=== PATIENT | male | born 1990 | race Caucasian/White ===

== ENCOUNTER 2022-11-09 11:57 | Emergency (ER) | payer BC ==
--- OUTSIDE RECORDS SUMMARY | 2022-11-09 12:00 | XMS REPORT | Continuity of Care Document ---
:1990 Author Organization [facility] t Address [address] [facility] [address] [place] [address] Care Team Providers Name Role Phone Pcp, Patient Does Not Have A Primary Care Physician [id number] Eugenie Moody Attending Clinician Lab, Ang - Db Attending Clinician Unavailable EUGENIE HALL Attending Clinician Unavailable Pob, Adc Lab Main Attending Clinician Unavailable Doctor Unassigned, [place] Attending Clinician Unavailable MARY HAMILTON Attending Clinician Unavailable CARLOZ LANDA Attending Clinician Unavailable Payers Payer Name Policy Type Policy Number Effective Date Expiration Date S ource Problems Condition Condition Condition Status Onset Resolution Last Treating Co mments Source Name Details Category Date Date Treatment Clinician Date Hyperinsul Hyperinsul Disease Active U nivers inemia inemia 8-05 ity of 00:00: [place] 00 [facility] Branch Elevated Elevated Disease Active Unive rs ALT ALT 8-05 ity [place] measure[place] Other Other Disease Active Univers epilepsy epilepsy 8-03 ity of without without 00:00: [place] status status 00 Medical epilepticu epilepticu Br anch s, not s, not intractabl intractabl e e Obesity Obesity Disease Active Univers (BMI (BMI 8-03 ity of 30-39.9) 30-39.9) 00:00: [place] 00 Medical Branch Allergies, Adverse Reactions, Alerts Allergy Allergy Status Severity Reaction(s) Onset Inactive Treating Comm ents Source Name Type Date Date Clinician Erythrom Propensi Active Unknown - Uni vers ycin ty to See comments 8-03 ity of (Bulk) adverse 00:00: [place] reaction 00 Medical s Branch ERYTHROM DRUG Active Unknown-Cmnt Un harry YCIN 8-03 ity of (BULK) 00:00: [place] 00 Medical Branch Social History Social Habit Start Date Stop Date Quantity Comments Source History of Chews Tobacco University of tobacco use [facility] Exposure to 2022-05-11 2022-05-[address] [facility] SARS-CoV-2 00:00:00 07:16:00 [facility] (event) Branch Alcohol intake 2022-05-21 2022-05-21 Current drinker Unive rsity of 00:00:00 00:00:00 of alcohol [facility] (finding) [place] Tobacco use and 2021-11-27 2021-11-27 User of smokeless Un iversity of exposure 00:00:00 00:00:00 tobacco [facility] Sex Ass[birth year] At [birth year] Universit y of 00:00:00 00:00:00 [facility] Smoking Status Start Date Stop Date Source Never smoked tobacco [facility] Medications Ordered Filled Start Stop Current Ordering Indication Dosage Frequency Signature Comments Components Source Medication Medication Date Date Medication? Clinician (SIG) Name Name topiramate Yes [id number] 200mg Take 1 Univers 200 mg 3-30 tablet by ity of tablet 00:00: mouth in [place] 00 the Medical morning. Branch TOPIRAMATE 2022-0 Yes [id number] 100mg TAKE 1 Univers 100 mg 3-30 TABLET BY ity of tablet 00:00: MOUTH IN [place] THE Medical MORNING Branch topiramate 2022-0 Yes [id number] 200mg Take 1 Univers 200 mg 3-30 tablet by ity of tablet 00:00: mouth in [place] the Medical morning. Branch TOPIRAMATE 2022-0 Yes [id number] 100mg TAKE 1 Univers 100 mg 3-30 TABLET BY ity of tablet 00:00: MOUTH IN [place] THE Medical MORNING Branch topiramate 2022-0 Yes [id number] 200mg Take 1 Univers (TOPAMAX) 1-25 tablet by ity o f 200 mg 00:00: mouth in [place] tablet 00 the Medical morning. Branch Follow-up for refills and fasting labs. topiramate 2022-0 Yes [id number] 100mg Take 1 Univers 100 mg 1-25 tablet by ity of tablet 00:00: mouth in [place] 00 the Medical morning. Branch topiramate 2023-0 Yes [id number] 200mg Take 1 Univers (TOPAMAX) 1-25 tablet by ity o f 200 mg 00:00: mouth in [place] tablet 00 the Medical morning. Branch Follow-up for refills and fasting labs. topiramate 2023-0 Yes [id number] 100mg Take 1 Univers 100 mg 1-25 tablet by ity of tablet 00:00: mouth in [place] 00 the Medical morning. Branch topiramate 2023-0 Yes [id number] 200mg Take 1 Univers (TOPAMAX) 1-25 tablet by ity o f 200 mg 00:00: mouth in [place] tablet 00 the Medical morning. Branch Follow-up for refills and fasting labs. topiramate 2023-0 Yes [id number] 100mg Take 1 Univers 100 mg 1-25 tablet by ity of tablet 00:00: mouth in [place] 00 the Medical morning. Branch topiramate 2023-0 Yes [id number] 200mg Take 1 Univers (TOPAMAX) 1-25 tablet by ity o f 200 mg 00:00: mouth in [place] tablet 00 the Medical morning. Branch Follow-up for refills and fasting labs. topiramate 2023-0 Yes [id number] 100mg Take 1 Univers 100 mg 1-25 tablet by ity of tablet 00:00: mouth in [place] 00 the Medical morning. Branch topiramate 2023-0 2023- No [id number] 200mg Take 1 Univers (TOPAMAX) 1-25 03-30 tablet by ity of 200 mg 00:00: 00:00 mouth in [place] tablet 00 :00 the Medical morning. Branch Follow-up for refills and fasting labs. topiramate 2023-0 2023- No [id number] 100mg Take 1 Univers 100 mg 1-25 03-30 tablet by ity of tablet 00:00: 00:00 mouth in [place] 00 :00 the Medical morning. Branch topiramate 2023-0 Yes [id number] 200mg Take 1 Univers (TOPAMAX) 1-22 tablet by ity o f 200 mg 00:00: mouth in [place] tablet 00 the Medical morning. Branch Follow-up for refills and fasting labs. topiramate 2023-0 Yes [id number] 100mg Take 1 Univers 100 mg 1-22 tablet by ity of tablet 00:00: mouth in [place] 00 the Medical morning. [place] topiramate 2022-0 3- No [id number] 200mg Take 1 Univers (TOPAMAX) 05-1825 tablet by ity of 200 mg 00:00: 00:00 mouth in [place] tablet 00 :00 the Medical morning. Branch Follow-up for refills and fasting labs. topiramate 2022-0 3- No [id number] 100mg Take 1 Univers 100 mg 05-18 tablet by ity of tablet 00:00: 00:00 mouth in [place] 00 :00 the Medical morning. [place] topiramate 2022-0 3- No [id number] 200mg Take 1 Univers (TOPAMAX) 05-18 tablet by ity of 200 mg 00:00: 00:00 mouth in [place] tablet 00 :00 the Medical morning. Branch Follow-up for refills and fasting labs. topiramate 2022-0 3- No [id number] 100mg Take 1 Univers 100 mg 05-18 tablet by ity of tablet 00:00: 00:00 mouth in [place] 00 :00 the Medical morning. [place] topiramate 2021-0 2021- No 200mg Take 200 U nivers (TOPAMAX) 8-05 08-05 mg by ity of 200 mg 15:24: 00:00 mouth. [place] tablet 55 :00 Medical Branch topiramate 2021-0 Yes [id number] 200mg Take 1 Univers (TOPAMAX) 8-05 tablet by ity o f 200 mg 00:00: mouth in [place] tablet 00 the Medical morning. [place] topiramate 2-0 Yes [id number] 100mg Take 1 Univers 100 mg 8-05 tablet by ity of tablet 00:00: mouth in [place] 00 the Medical morning. [place] topiramate 2-0 Yes [id number] 200mg Take 1 Univers (TOPAMAX) 8-05 tablet by ity o f 200 mg 00:00: mouth in [place] tablet 00 the Medical morning. [place] topiramate 2-0 Yes [id number] 100mg Take 1 Univers 100 mg 8-05 tablet by ity of tablet 00:00: mouth in [place] 00 the Medical morning. [place] topiramate 2-0 3- No [id number] 200mg Take 1 Univers (TOPAMAX) 8-05 -13 tablet by ity of 200 mg 00:00: 00:00 mouth in [place] tablet 00 :00 the Medical morning. Branch topiramate 2021-0 2023- No [id number] 100mg Take 1 Univers 100 mg 11-29 tablet by ity of tablet 00:00: 00:00 mouth in [place] 00 :00 the Medical morning. [place] topiramate 2021-0 Yes 200mg Take 200 Un harry (TOPAMAX) 8-03 mg by ity of 200 mg 09:51: mouth. [place] tablet 50 [facility] topiramate 2021-0 Yes 200mg Take 200 Un harry (TOPAMAX) 8-03 mg by ity of 200 mg 09:51: mouth. [place] tablet 50 [facility] topiramate 2021-0 Yes 200mg Take 200 Un harry (TOPAMAX) 8-03 mg by ity of 200 mg 09:51: mouth. [place] tablet 50 [facility] topiramate 2020-0 Yes 100mg Take 100 Un harry 100 mg 9-25 mg by ity of tablet 00:00: mouth in [place] 00 the Medical morning. Branch topiramate 2020-0 Yes 100mg Take 100 Un harry 100 mg 9-25 mg by ity of tablet 00:00: mouth in [place] 00 the Medical morning. Branch topiramate 2020-0 Yes 100mg Take 100 Un harry 100 mg 9-25 mg by ity of tablet 00:00: mouth in [place] 00 the Medical morning. Branch topiramate 2021-0 2022- No 100mg Take 100 U nivers 100 mg 9-25 08-05 mg by ity of tablet 00:00: 00:00 mouth in [place] 00 :00 the Medical morning. Branch Immunizations Ordered Filled Immunization Date Status Comments [facility] e Immunization Name Name TD 2015-11-26 Completed University of 00:00:00 [facility] TDAP 2015-11-26 Completed University of 00:00:00 [facility] TDAP 2015-11-26 Completed University of 00:00:00 [facility] TDAP 2015-11-26 Completed University of 00:00:00 [facility] TDAP 2015-11-26 Completed University 00:00:00 [facility] TDAP 2015-11-26 Completed University 00:00:00 [facility] TDAP 2015-11-26 Completed University of 00:00:00 [place] [facility] TDAP 2015-11-26 Completed University of 00:00:00 [place] [facility] TDAP 2015-11-26 Completed University of 00:00:00 [place] [facility] TDAP 2015-11-26 Completed University of 00:00:00 [place] [facility] TDAP 2015-11-26 Completed University of 00:00:00 [place] [facility] TDAP 2015-11-26 Completed University of 00:00:00 [facility] Vital Signs Vital Name Observation Time Observation Value Comments Source BMI 2022-05-21 13:45:00 42.10 kg/m2 Universi ty of [place] [facility] [place] Oxygen saturation in 2022-05-21 13:45:00 98 /min University of Arterial blood by eV[employer] Pulse oximetry Branch Systolic blood 2022-05-21 13:45:00 129 mm[Hg] Univer sity of pressure [place] [facility] [place] Diastolic blood 2022-05-21 13:45:00 83 mm[Hg] Unive rsity of pressure [facility] Heart rate 2022-05-21 13:45:00 63 /min Universi ty of [place] [facility] Body temperature 2022-05-21 13:45:00 37.17 Madelyn Univ ersity of [place] [facility] Body height 2022-05-21 13:45:00 195.6 cm Universi ty of [place] [facility] Body weight 2022-05-21 13:45:00 161.027 kg Universi ty of [place] [facility] Systolic blood 2021-11-27 14:44:00 133 mm[Hg] Univer sity of pressure [place] [facility] Diastolic blood 2021-11-27 14:44:00 77 mm[Hg] Unive rsity of pressure [place] [facility] Heart rate 2021-11-27 14:44:00 80 /min Universi ty of [place] [facility] Body height 2021-11-27 14:44:00 195.6 cm Universi ty of [place] [facility] Body weight 2021-11-27 14:44:00 151.048 kg Universi ty of [place] [facility] BMI 2021-11-27 14:44:00 39.49 kg/m2 Universi ty of [place] [facility] Oxygen saturation in 2021-11-27 14:44:00 98 /min University of Arterial blood by eVenues Pulse oximetry Branch Procedures This patient has no known procedures. Encounters Start End Encounter Admission Attending Care Care Encounter Source Date/Time Date/Time Type Type Clinicians Facility Department ID 2022-07-25 2022-07-25 [facility] [id number] Univers 00:00:00 00:00:00 Eugenie A HEALTH [id number] i ty of [place] 4.2.7.2.686 Luis F as SUKH?BLEA [id number] [address] OFFICE [facility] 2022-07-19 2022-07-19 [facility] [id number] Univers 00:00:00 00:00:00 Eugenie A HEALTH [id number] i ty of [place] 4.2.7.2.686 Luis F as SUKH?BLEA [id number] [address] OFFICE [facility] 2022-05-22 2022-05-22 [facility] [id number] Univers 00:00:00 00:00:00 Eugenie A HEALTH [id number] i ty of [place] [id number] Luis F as SUKH?BLEA [id number] [facility] 044 [facility] 2022-05-21 2022-05-21 Healthcare Corporate Account Director Lab, Ang [facility] [id number] Univers 08:15:00 08:27:48 Visit Eugenie Hall Pedro HEALTH [id number] ity of [place] [id number] Luis F as SUKH?BLEA [phone] [facility] OFFICE [facility] 2022-05-21 2022-05-21 Office [facility] [id number] Univers 07:30:00 08:10:47 Visit Eugenie Vasquez HEALTH [id number] i ty of [place] [id number] Luis F as SUKH?BLEA [id number] [address] OFFICE [facility] 2022-05-21 2022-05-21 [facility] [id number] Univers 07:30:00 08:10:47 EUGENIE marina [facility] 2022-05-09 2022-05-09 Refill [facility] [id number] Univers 00:00:00 00:00:00 Eugenie A HEALTH [id number] i ty of [place] [id number] Luis F as SUKH?BLEA [id number] [facility] 044 [facility] OFFICE [facility] 2021-12-03 2021-12-03 Telephone [facility] [id number] Univers 00:00:00 00:00:00 Eugenie A HEALTH [id number] i ty of [place] [id number] Luis F as SUKH?BLEA [id number] [facility] 044 [facility] OFFICE [facility] 2021-11-29 2021-11-29 [facility]phone [facility] [id number] Univers 00:00:00 00:00:00 Eugenie A HEALTH 350.1.13.10 i ty of [place] [id number] Luis F as SUKH?BLEA [id number] [facility] 044 [facility] 2021-11-27 2021-11-27 Healthcare Corporate Account Director Shanna, Adc Lab Main [facility] 1.2.8 [id number] Univers 11:30:00 11:45:00 Visit Eugenie Hall Pedro [place] [id number] ity of [place] 4.2.7.2.686 [place] PROF[place] [id number] [facility] 353 [facility] 2021-11-27 2021-11-27 Outpatient [facility] [id number] Univers 10:00:00 11:44:32 EUGENIE marina [facility] 2021-11-27 2021-11-27 Office [facility] [id number] Univers 10:00:00 10:30:00 Visit Eugenie Vasquez HEALTH 350.1.13.10 i ty of [place] [id number] Luis F as SUKH?BLEA [id number] [place] roberto PUGA [address] [place] [address] MEDICAL OFFICE BUILDING 2021-11-27 2021-11-27 Outpatient Roddy HALL [facility] [id number] [facility] 10:00:00 10:00:00 EUGENIE marina [facility] 2021-11-27 2021-11-27 Orders Doctor VERITO [id number] Univers 00:00:00 00:00:00 Only Unassigned, [place] 350.1.13.10 ity [place] [facility] [id number] Luis F as [id number] [address] 2021-11-21 2021-11-21 Outpatient SAMIA HAMILTON [id number] Samia 11:30:00 11:30:00 MARY johnston 2021-11-20 2021-11-20 Outpatient SAMIA LANDA [id number] Samia 16:00:00 16:00:00 CARLOZ johnston Results This patient has no known results.
[2022-11-09] MEDS ORDERED: KETOROLAC 30 MG/ML INJ ONE (12:52)
[2022-11-09] MEDS ORDERED: HYDROCODONE/APAP 10/325 TAB ONE (12:52)
--- NOTE | 2022-11-09 13:14 | ER ---
Nurse's Notes [facility] Name: Pipe Paz Age: 32 yrs Sex: Male : 1990 Arrival Date: 11/09/2022 Time: 11:57 Bed 19 Private MD: Diagnosis: Pain in left shoulder;Sprain of unspecified parts of unspecified shoulder girdle, initial encounter Presentation: 11/09 12:17 Chief complaint: Patient states: Was playing [employer] ball yesterday and heard a "pop" vg1 while throwing the ball, c/o Left shoulder pain. Coronavirus screen: Vaccine status: Patient reports being unvaccinated. Ebola Screen: Patient negative for fever greater than or equal to 101.5 degrees Fahrenheit, and additional compatible Ebola Virus Disease symptoms Patient denies exposure to infectious person. Patient denies travel to an Ebola-affected area in the 21 days before illness onset. Initial Sepsis Screen: Does the patient meet any 2 criteria? No. Patient's initial sepsis screen is negative. Does the patient have a suspected source of infection? No. Patient's initial sepsis screen is negative. Risk Assessment: Do you want to hurt yourself or someone else? Patient reports no desire to harm self or others. Onset of symptoms was November 08, 2022. 12:17 Method Of Arrival: Ambulatory vg1 12:17 Acuity: ELIAS 4 vg1 Triage Assessment: 12:18 General: Appears in no apparent distress. uncomfortable, Behavior is calm, cooperative. vg1 Pain: Complains of pain in Left Shoulder Pain currently is 5 out of 10 on a pain scale. Pain began 1 day ago. Musculoskeletal: Circulation, motion, and sensation intact. Range of motion: limited in left shoulder. Historical: - Allergies: 12:18 Erythromycin; vg1 - Home Meds: 12:18 Topamax Oral [Active]; vg1 - PMHx: 12:18 Epilepsy; vg1 - PSHx: 12:18 None; vg1 - Immunization history:: Client reports having NOT received the Covid vaccine. - Social history:: Smoking status: Patient reports use of chewing tobacco. - Family history:: not pertinent. Screenin:20 [facility] ED Fall Risk Assessment (Adult) History of falling in the last 3 months, vg1 including since admission No falls in past 3 months (0 pts). Abuse screen: Denies threats or abuse. Denies injuries from another. Nutritional screening: No deficits noted. Tuberculosis screening: No symptoms or risk factors identified. Assessment: 12:20 Reassessment: SEE TRIAGE. vg1 13:29 Reassessment: Patient appears in no apparent distress at this time. Patient and/or vg1 family updated on plan of care and expected duration. Pain level reassessed. Patient is alert, oriented x 3, equal unlabored respirations, skin warm/dry/pink. Pain has decreased to 3/10. Vital Signs: 12:17 BP 125 / 76; Pulse 78; Resp 14; Temp 97.7(O); Pulse Ox 98% on R/A; Weight 157.4 kg; vg1 Height 6 ft. 5 in. ; Pain 5/10; 13:29 BP 129 / 80; Pulse 70; Resp 14; Pulse Ox 99% on R/A; vg1 12:17 Body Mass Index 41.15 (157.40 kg, 195.58 cm) vg1 12:17 Pain Scale: Adult vg1 ED Course: 11:59 Patient arrived in ED. am2 12:06 Pipe Cedillo MD is Attending Physician. milan 12:07 Solange Caceres RN is Primary Nurse. vg1 12:18 Triage completed. vg1 12:18 Arm band placed on. vg1 12:20 Patient has correct armband on for positive identification. Bed in low position. Call vg1 light in reach. Side rails up X 1. Adult w/ patient. 12:20 No provider procedures requiring assistance completed. vg1 12:24 Sling applied to left arm. mm9 12:49 Shoulder Left (2 View) XRAY In Process Unspecified. EDMS 13:14 Omid Julian MD is Referral Physician. milan 13:29 Patient did not have IV access during this emergency room visit. vg1 Administered Medications: 12:46 Drug: Sheridan PO 10 mg-325 mg 1 tabs Route: PO; vg1 13:28 Follow up: Response: No adverse reaction; Marked relief of symptoms vg1 12:49 Drug: Ketorolac IM 60 mg {Note: 30 mg Right deltoid 30 mg Left deltoid.} Route: IM; vg1 Site: left deltoid; 13:28 Follow up: Response: No adverse reaction; Marked relief of symptoms vg1 Medication: 12:20 VIS not applicable for this client. vg1 Outcome: 13:14 Discharge ordered by . milan 13:29 Discharged to home ambulatory, with family. vg1 13:29 Condition: good 13:29 Discharge instructions given to patient, family, Instructed on discharge instructions, follow up and referral plans. medication usage, Demonstrated understanding of instructions, follow-up care, medications, Prescriptions given X 3. 13:30 Patient left the ED. vg1 Signatures: Dispatcher [employer] EDPipe Fairbanks MD MD cha Moreno, Amanda am2 Garcia, Victoria, RN RN juan [email or web address] Margo Hernandez mm9
--- NOTE | 2022-11-09 13:14 | EDPHYS ---
Physician Documentation [facility] Name: Pipe Paz Age: 32 yrs Sex: Male : 1990 Arrival Date: 11/09/2022 Time: 11:57 Bed 19 Private MD: ED Physician Pipe Cedillo HPI: 11/09 12:24 This 32 yrs old Male presents to ER via Ambulatory with complaints of milan Shoulder Injury. 12:24 The patient or guardian complains of decreased range of motion, pain, that is acute. milan left shoulder. Context: The problem was sustained at a sports field or court. Onset: The symptoms/episode began/occurred yesterday. Modifying factors: the symptoms are alleviated by remaining still, shoulder immobilizer, sling, The symptoms are aggravated by lifting weight, movement, rotation of arm. Associated signs and symptoms: The patient has no apparent associated signs or symptoms. Severity of symptoms: At their worst the symptoms were moderate, in the emergency department the symptoms are unchanged. Treatment prior to arrival includes: no previous treatment. The patient has not experienced similar symptoms in the past. Historical: - Allergies: 12:18 Erythromycin; vg1 - Home Meds: 12:18 Topamax Oral [Active]; vg1 - PMHx: 12:18 Epilepsy; vg1 - PSHx: 12:18 None; vg1 - Immunization history:: Client reports having NOT received the Covid vaccine. - Social history:: Smoking status: Patient reports use of chewing tobacco. - Family history:: not pertinent. ROS: 12:24 Constitutional: Negative for fever, chills, and weight loss, Eyes: Negative for injury, milan pain, redness, and discharge, ENT: Negative for injury, pain, and discharge, Neck: Negative for injury, pain, and swelling, Cardiovascular: Negative for chest pain, palpitations, and edema, Respiratory: Negative for shortness of breath, cough, wheezing, and pleuritic chest pain, Abdomen/GI: Negative for abdominal pain, nausea, vomiting, diarrhea, and constipation, Back: Negative for injury and pain, : Negative for injury, bleeding, discharge, and swelling, Skin: Negative for injury, rash, and discoloration, Neuro: Negative for headache, weakness, numbness, tingling, and seizure, Psych: Negative for depression, anxiety, suicide ideation, homicidal ideation, and hallucinations, Allergy/Immunology: Negative for hives, rash, and allergies, Endocrine: Negative for neck swelling, polydipsia, polyuria, polyphagia, and marked weight changes, Hematologic/Lymphatic: Negative for swollen nodes, abnormal bleeding, and unusual bruising. 12:24 MS/extremity: Positive for decreased range of motion, pain, tenderness, of the anterior aspect of left shoulder and posterior aspect of left shoulder. Exam: 12:24 Constitutional: This is a well developed, well nourished patient who is awake, alert, milan and in no acute distress. Head/Face: Normocephalic, atraumatic. Eyes: Pupils equal round and reactive to light, extra-ocular motions intact. Lids and lashes normal. Conjunctiva and sclera are non-icteric and not injected. Cornea within normal limits. Periorbital areas with no swelling, redness, or edema. ENT: Nares patent. No nasal discharge, no septal abnormalities noted. Tympanic membranes are normal and external auditory canals are clear. Oropharynx with no redness, swelling, or masses, exudates, or evidence of obstruction, uvula midline. Mucous membranes moist. Neck: Trachea midline, no thyromegaly or masses palpated, and no cervical lymphadenopathy. Supple, full range of motion without nuchal rigidity, or vertebral point tenderness. No Meningismus. Chest/axilla: Normal chest wall appearance and motion. Nontender with no deformity. No lesions are appreciated. Cardiovascular: Regular rate and rhythm with a normal S1 and S2. No gallops, murmurs, or rubs. Normal PMI, no JVD. No pulse deficits. Respiratory: Lungs have equal breath sounds bilaterally, clear to auscultation and percussion. No rales, rhonchi or wheezes noted. No increased work of breathing, no retractions or nasal flaring. Abdomen/GI: Soft, non-tender, with normal bowel sounds. No distension or tympany. No guarding or rebound. No evidence of tenderness throughout. Back: No spinal tenderness. No costovertebral tenderness. Full range of motion. Male : Normal genitalia with no discharge or lesions. Skin: Warm, dry with normal turgor. Normal color with no rashes, no lesions, and no evidence of cellulitis. Neuro: Awake and alert, GCS 15, oriented to person, place, time, and situation. Cranial nerves II-XII grossly intact. Motor strength 5/5 in all extremities. Sensory grossly intact. Cerebellar exam normal. Normal gait. Psych: Awake, alert, with orientation to person, place and time. Behavior, mood, and affect are within normal limits. 12:24 Musculoskeletal/extremity: Extremities: grossly normal except: noted in the anterior aspect of left shoulder and left shoulder: decreased ROM, pain, ROM: limited active range of motion due to pain, limited passive range of motion due to pain, in the anterior aspect of left shoulder and posterior aspect of left shoulder, Circulation is intact in all extremities. Sensation intact. Compartment Syndrome exam of affected extremity: is normal. DVT Exam: No signs of deep vein thrombosis. no swelling, negative Homans' sign noted on exam, no appreciated bluish discoloration, no erythema, no increased warmth, pain, tenderness. Vital Signs: 12:17 BP 125 / 76; Pulse 78; Resp 14; Temp 97.7(O); Pulse Ox 98% on R/A; Weight 157.4 kg; vg1 Height 6 ft. 5 in. ; Pain 5/10; 13:29 BP 129 / 80; Pulse 70; Resp 14; Pulse Ox 99% on R/A; vg1 12:17 Body Mass Index 41.15 (157.40 kg, 195.58 cm) vg1 12:17 Pain Scale: Adult vg1 MDM: 12:06 Patient medically screened. [facility] 12:26 Data reviewed: vital signs, nurses notes, radiologic studies, plain films. [facility] Consideration of Admission/Observation Escalation of care including admission/observation considered. I considered the following discharge prescriptions or medication management in the emergency department Medications were administered in the Emergency Department. See MAR. Independent interpretation of the following test(s) in the Emergency Department X-Ray: My interpretation is x ray left shoulder. Test considered but Not performed: Labs: no labs. Historians other than the Patient: Spouse/Significant Other: informed. Care significantly affected by the following chronic conditions: epilepsy. Counseling: I had a detailed discussion with the patient and/or guardian regarding: the historical points, exam findings, and any diagnostic results supporting the discharge/admit diagnosis, radiology results, the need for outpatient follow up, for definitive care, a orthopedic surgeon. 11/09 12:15 Order name: Shoulder Left (2 View) XRAY [facility] 11/09 12:15 Order name: Sling; Complete Time: 12:24 [facility] 11/09 12:15 Order name: Ice pack; Complete Time: 12:23 [facility] Administered Medications: 12:46 Drug: Bridger PO 10 mg-325 mg 1 tabs Route: PO; vg1 13:28 Follow up: Response: No adverse reaction; Marked relief of symptoms vg1 12:49 Drug: Ketorolac IM 60 mg {Note: 30 mg Right deltoid 30 mg Left deltoid.} Route: IM; vg1 Site: left deltoid; 13:28 Follow up: Response: No adverse reaction; Marked relief of symptoms vg1 Disposition Summary: 11/09/22 13:14 Discharge Ordered Location: Home [facility] Problem: new [facility] Symptoms: are unchanged milan Condition: Stable milan Diagnosis - Pain in left shoulder milan - Sprain of unspecified parts of unspecified shoulder girdle, initial encounter milan Followup: milan - With: Private Physician - When: 2 - 3 days - Reason: Recheck today's complaints, Continuance of care, Re-evaluation by your physician Followup: milan - With: - When: 2 - 3 days - Reason: Recheck today's complaints, Re-evaluation by your physician Discharge Instructions: - Discharge Summary Sheet milan - Joint Pain milan - Musculoskeletal Pain milan - Shoulder Pain milan - How to Use Cold Therapy, [id number] milan - Shoulder Pain, [id number] milan - Shoulder Sprain milan - Joint Pain, [id number] [facility] Forms: - Medication Reconciliation Form [facility] - Thank You Letter [facility] - Antibiotic Education milan - Prescription Opioid Use [facility] - Patient Portal Instructions [facility] Prescriptions: - acetaminophen-codeine 300-30 mg Oral tablet - take 2 tablet by ORAL route every 6 hours; 20 tablet; Refills: 0, Product [facility] Selection Permitted - Diclofenac Sodium 75 mg Oral tablet,delayed release (DR/EC) - take 1 tablet by ORAL route 2 times per day; 20 tablet; Refills: 0, Product [facility] Selection Permitted - Medrol (Krishna) 4 mg Oral Tablets, Dose Pack - take 1 tablet by ORAL route as directed - follow package instructions; 1 milan packet; Refills: 0, Product Selection Permitted Signatures: Dispatcher [employer] Pipe Blanca MD MD cha Garcia, Victoria, RN RN vg1
--- NOTE | 2022-11-09 13:17 | RAD REPORT ---
EXAM DESCRIPTION: RAD - Shoulder Left 2 View - 11/09/2022 12:47 pm CLINICAL HISTORY: PAIN COMPARISON: No comparisons TECHNIQUE: Internal and external rotation views of the left shoulder were obtained. FINDINGS: There is no fracture or dislocation. AC joint is normal in appearance. No acute or suspici ous findings. IMPRESSION: Negative two-view left shoulder examination.
[2022-11-09 13:39] VITALS: TEMP 97.7
[2022-11-09 13:41] VITALS: BP 129/80; O2SAT 99
== END 2022-11-09 13:30 | disposition home or self-care (01) ==
LOC: ER 11:57
DX: S43.82XA Sprain of other specified parts of left shoulder girdle, initial encounter (principal); F17.220 Nicotine dependence, chewing tobacco, uncomplicated; Z88.3 Allergy status to other anti-infective agents
CPT/HCPCS: 96372; 99284

== ENCOUNTER 2023-12-04 01:21 | Emergency (ER) | payer BC ==
--- OUTSIDE RECORDS SUMMARY | 2023-12-04 01:24 | XMS REPORT | Continuity of Care Document ---
Author Name Unknown Address [address] [place] [address] [facility] thconnect Address [address] [place] [address] Care Team Providers Care Scratch Brusher Name Role Phone Pcp, Patient Does Not Have A Primary Care Physic rosalva DANY PARR Attending Clinician UnavailDANY De Los Santos Attending Clinician UnavailDany De Los Santos MD Attending Clinician [phone] CECE IQBAL Attending Clinician Unavailable Cece Noel Attending Clinician [phone] Unknown, Attending Attending Clinician Unavailab Hina De La Vega Attending Clinician [phone] HINA SINGH Attending Clinician Unavailable Eugenie Moody Attending Clinician [phone] Joellen Vargas PTA Attending Clinician Unavail able JOSIE GORMAN Attending Clinician Unavailable Josie Gorman PA-C Attending Clinician [phone] Gabrielle Moyer PT Attending Clinician Unavailable Eleno Vargas PTA Attending Clinician Unavaila Flor Machuca PT Attending Clinician Un available Doctor Unassigned, [place] Attending Clinician U SEAN Sood Attending Clinician Unavailable SEAN SIERRA Attending Clinician Unavailable Lab, Ang - Db Attending Clinician Unavailable EUGENIE SEE Attending Clinician Unavailable Pob, Ad[facility] Lab Main Attending Clinician UnavailMARY Rivas Attending Clinician Unavailab CARLOZ Montero Attending Clinician Unava ilable Payers Payer Name Policy Type Policy Number Effective Date Expirati on Date Source Problems Condition Name Condition Details Condition Category Status Onset Date Resolution Date Last Treatment Date Treating Clinician Comments Source Hyperinsul inemia Hyperinsul inemia Disease Active 11-29 00:00: 00 [facility] Elevated ALT measuremen t Elevated ALT measuremen t Disease Active 11-29 00:00: 00 [facility] Other epilepsy without status epilepticu s, not intractabl e Other epilepsy without status epilepticu s, not intractabl e Disease Active 11-27 00:00: 00 [facility] Obesity (BMI 30-39.9) Obesity (BMI 30-39.9) Disease Active 11-27 00:00: 00 [facility] Other epilepsy without status epilepticu s, not intractabl e Other epilepsy without status epilepticu s, not intractabl e Disease Active 11-27 00:00: 00 [facility] Allergies, Adverse Reactions, Alerts Allergy Name Allergy Type Status Severity Reaction(s) Onset Date Inactive Date Treating Clinician Comments Source Erythrom ycin (Bulk) Propensi ty to adverse reaction s Active Unknown - See comments 11-27 00:00: 00 [facility] ERYTHROM YCIN (BULK) DRUG Active Unknown-Cmnt 11-27 00:00: 00 [facility] Social History Social Habit Start Date Stop Date Quantity Comments Source Gender identity [facility] History of tobacco use Chews Tobacco [facility] Alcohol intake 2023-07-02 00:00:00 2023-07-02 00:00:00 Current drinker of alcohol (finding) [facility] History of Social function 2022-11-10 00:00:00 2022-11-10 00:00:00 [facility] Exposure to SARS-CoV-2 (event) 2022-05-11 00:00:00 2022-05-21 07:16:00 Not sure [facility] Tobacco use and exposure 2021-11-27 00:00:2021-11-27 00:00:00 User of smokeless tobacco [facility] Sex Assigned At 1990 00:00:00 1990 00:00:00 [facility] Smoking Status Start Date Stop Date Source Never smoked tobacco [facility] Medications Ordered Medication Name Filled Medication Name Start Date Stop Date Current Medication? Ordering Clinician Indication Dosage Frequency Signature (SIG) Comments Components Source diclofenac 75 mg EC tablet 07-01 00:00: 00 Yes [id number] 75mg Take 1 tablet by mouth in the morning and 1 tablet in the evening. Take with meals. [facility] codeine-gua ifenesin 10-100 mg/5 mL oral solution 2022-04 00:00: 00 02-02 04:59 :00 No 10mL Take 10 mL by mouth every 6 (six) hours as needed for Cough for up to 5 days. Indication s: cough [facility] predniSONE 20 mg tablet 2022-04 00:00: 00 02-02 04:59 :00 No [id number] 40mg Take 2 tablets by mouth in the morning for [address] [facility] TOPIRAMATE 200 mg tablet 01-22 00:00: 00 Yes [id number] 200mg TAKE 1 TABLET BY MOUTH IN THE MORNING [facility] TOPIRAMATE 100 mg tablet 01-22 00:00: 00 Yes [id number] 100mg TAKE 1 TABLET BY MOUTH IN THE MORNING [facility] dexamethaso ne sod phos PF injection 10 mg 01-15 15:45: 00 01-15 14:51 :38 [id number] [facility] dexamethaso ne (DECADRON) injection 10 mg 01-15 15:45: 00 01-15 15:01 :[id number] [facility] albuterol 2.5 mg /3 mL (0.083 %) nebulizer solution 01-15 00:00: 00 Yes [id number] 2.5mg Inhale 3 mL every 4 (four) hours as needed for Wheezing or Shortness of Breath. [facility] cetirizine 10 mg tablet 01-15 00:00: 00 Yes [id number] 10mg Take 1 tablet by mouth in the morning. [facility] Guaifenesin 1,200 mg tablet 01-15 00:00: 00 Yes [id number] 1200mg Take 1 tablet by mouth in the morning and 1 tablet in the evening. [facility] methylPREDN ISolone 4 mg tablets 01-15 00:00: 00 Yes [id number] Take by mouth SEE-INSTRU CTIONS. follow package directions [facility] albuterol 90 mcg/actuati on inhaler 01-15 00:00: 00 Yes [id number] 2{puff} Inhale 2 Puffs every 6 (six) hours as needed for Wheezing or Shortness of Breath. [facility] topiramate 200 mg tablet 07-24 00:00: 00 01-22 00:00 :00 No [id number] 200mg Take 1 tablet by mouth in the morning. [facility] TOPIRAMATE 100 mg tablet 330 00:00: 00 01-22 00:00 :00 No [id number] 100mg TAKE 1 TABLET BY MOUTH IN THE MORNING [facility] topiramate (TOPAMAX) 200 mg tablet 1- 00:00: 00 07-24 00:00 :00 No [id number] 200mg Take 1 tablet by mouth in the morning. Follow-up for refills and fasting labs. [facility] topiramate 100 mg tablet 0 1-25 00:00: 00 07-24 00:00 :00 No [id number] 100mg Take 1 tablet by mouth in the morning. [facility] topiramate (TOPAMAX) 200 mg tablet 1-22 00:00: 00 05-21 00:00 :00 No [id number] 200mg Take 1 tablet by mouth in the morning. Follow-up for refills and fasting labs. [facility] topiramate 100 mg tablet 2022- 1-22 00:00: 00 05-21 00:00 :00 No [id number] 100mg Take 1 tablet by mouth in the morning. [facility] topiramate (TOPAMAX) 200 mg tablet 8-05 15:24: 55 11-29 00:00 :00 No 200mg Take [address] [facility] topiramate (TOPAMAX) 200 mg tablet 11-29 00:00: 00 05-09 00:00 :00 No [id number] 200mg Take 1 tablet by mouth in the morning. [facility] topiramate 100 mg tablet 8 00:00: 00 05-09 00:00 :00 No [id number] 100mg Take 1 tablet by mouth in the morning. [facility] topiramate (TOPAMAX) 200 mg tablet 11-27 09:51: 50 Yes 200mg Take [address] [facility] topiramate 100 mg tablet 01-19 00:00: 00 11-29 00:00 :00 No 100mg Take 100 mg by mouth in the morning. [facility] Immunizations Ordered Immunization Name Filled Immunization Name Date Status Comments Source TD 2015-11-26 00:00:00 Completed [facility] TDAP 2015-11-26 00:00:00 Completed [facility] TDAP 2015-11-26 00:00:00 Completed [facility] TDAP 2015-11-26 00:00:00 Completed [facility] TDAP 2015-11-26 00:00:00 Completed [facility] TDAP 2015-11-26 00:00:00 Completed [facility] TDAP 2015-11-26 00:00:00 Completed [facility] TDAP 2015-11-26 00:00:00 Completed [facility] TDAP 2015-11-26 00:00:00 Completed [facility] TDAP 2015-11-26 00:00:00 Completed [facility] TDAP 2015-11-26 00:00:00 Completed [facility] TDAP 2015-11-26 00:00:00 Completed [facility] TDAP 2015-11-26 00:00:00 Completed [facility] TDAP 2015-11-26 00:00:00 Completed [facility] TDAP 2015-11-26 00:00:00 Completed [facility] TDAP 2015-11-26 00:00:00 Completed [facility] TDAP 2015-11-26 00:00:00 Completed [facility] TDAP 2015-11-26 00:00:00 Completed [facility] TDAP 2015-11-26 00:00:00 Completed [facility] TDAP 2015-11-26 00:00:00 Completed [facility] TDAP 2015-11-26 00:00:00 Completed [facility] TDAP 2015-11-26 00:00:00 Completed [facility] TDAP 2015-11-26 00:00:00 Completed [facility] TDAP 2015-11-26 00:00:00 Completed [facility] TDAP 2015-11-26 00:00:00 Completed [facility] TDAP 2015-11-26 00:00:00 Completed [facility] TDAP 2015-11-26 00:00:00 Completed [facility] TDAP 2015-11-26 00:00:00 Completed [facility] TDAP 2015-11-26 00:00:00 Completed [facility] TDAP 2015-11-26 00:00:00 Completed [facility] TDAP 2015-11-26 00:00:00 Completed [facility] TDAP 2015-11-26 00:00:00 Completed [facility] TDAP 2015-11-26 00:00:00 Completed [facility] TDAP 2015-11-26 00:00:00 Completed [facility] TDAP 2015-11-26 00:00:00 Completed [facility] TDAP 2015-11-26 00:00:00 Completed [facility] TDAP 2015-11-26 00:00:00 Completed [facility] TDAP 2015-11-26 00:00:00 Completed [facility] TDAP 2015-11-26 00:00:00 Completed [facility] TDAP 2015-11-26 00:00:00 Completed [facility] TDAP 2015-11-26 00:00:00 Completed [facility] TDAP 2015-11-26 00:00:00 Completed [facility] TDAP 2015-11-26 00:00:00 Completed [facility] TDAP Unknown Completed [facility] TDAP Unknown Completed [facility] TDAP Unknown Completed [facility] TDAP Unknown Completed [facility] TDAP Unknown Completed [facility] TDAP Unknown Completed [facility] TDAP Unknown Completed [facility] TDAP Unknown Completed [facility] TDAP Unknown Completed [facility] TDAP Unknown Completed [facility] TDAP Unknown Completed [facility] TDAP Unknown Completed [facility] TDAP Unknown Completed [facility] TDAP Unknown Completed [facility] TDAP Unknown Completed [facility] TDAP Unknown Completed [facility] TDAP Unknown Completed [facility] Vital Signs Vital Name Observation Time Observation Value Comments S ource Systolic blood pressure 2023-07-02 16:22:00 120 mm[Hg] [facility] Diastolic blood pressure 2023-07-02 16:22:00 75 mm[Hg] [facility] Heart rate 2023-07-02 16:22:00 76 /min [facility] Respiratory rate 2023-07-02 16:22:00 20 /min [facility] Body height 2023-07-02 16:22:00 195.6 cm [facility] Body weight 2023-07-02 16:22:00 155.13 kg [facility] BMI 2023-07-02 16:22:00 40.56 kg/m2 [facility] Oxygen saturation in Arterial blood by Pulse oximetry 2023-07-02 16:22:00 99 /min [facility] Systolic blood pressure 2023-01-27 17:13:00 127 mm[Hg] [facility] Diastolic blood pressure 2023-01-27 17:13:00 81 mm[Hg] [facility] Heart rate 2023-01-27 17:13:00 82 /min [facility] Body temperature 2023-01-27 17:13:00 36.72 [facility] Respiratory rate 2023-01-27 17:13:00 20 /min [facility] Body height 2023-01-27 17:13:00 195.6 cm [facility] Body weight 2023-01-27 17:13:00 161.481 kg [facility] BMI 2023-01-27 17:13:00 42.22 kg/m2 [facility] Oxygen saturation in Arterial blood by Pulse oximetry 2023-01-27 17:13:00 97 /min [facility] Systolic blood pressure 2023-01-26 20:48:00 138 mm[Hg] [facility] Diastolic blood pressure 2023-01-26 20:48:00 85 mm[Hg] [facility] Heart rate 2023-01-26 20:48:00 94 /min [facility] Body height 2023-01-26 20:48:00 195.6 cm [facility] Body weight 2023-01-26 20:48:00 163.975 kg [facility] BMI 2023-01-26 20:48:00 42.87 kg/m2 [facility] Oxygen saturation in Arterial blood by Pulse oximetry 2023-01-26 20:48:00 97 /min [facility] Systolic blood pressure 2023-01-15 14:42:00 137 mm[Hg] [facility] Diastolic blood pressure 2023-01-15 14:42:00 89 mm[Hg] [facility] Heart rate 2023-01-15 14:42:00 99 /min [facility] Body temperature 2023-01-15 14:42:00 36.83 [facility] Respiratory rate 2023-01-15 14:42:00 18 /min [facility] Body weight 2023-01-15 14:42:00 161.481 kg [facility] BMI 2023-01-15 14:42:00 42.22 kg/m2 [facility] Oxygen saturation in Arterial blood by Pulse oximetry 2023-01-15 14:42:00 96 /min [facility] Body weight 2022-12-25 14:44:00 160.12 kg [facility] BMI 2022-12-25 14:44:00 41.86 kg/m2 [facility] Systolic blood pressure 2022-11-24 19:22:00 131 mm[Hg] [facility] Diastolic blood pressure 2022-11-24 19:22:00 88 mm[Hg] [facility] Heart rate 2022-11-24 19:16:00 78 /min [facility] Body height 2022-11-24 19:16:00 195.6 cm [facility] Body weight 2022-11-24 19:16:00 160.392 kg [facility] BMI 2022-11-24 19:16:00 41.93 kg/m2 [facility] Body height 2022-11-12 18:56:00 195.6 cm [facility] Body weight 2022-11-12 18:56:00 159.349 kg [facility] BMI 2022-11-12 18:56:00 41.66 kg/m2 [facility] Systolic blood pressure 2022-11-10 18:03:00 130 mm[Hg] [facility] Diastolic blood pressure 2022-11-10 18:03:00 81 mm[Hg] [facility] Heart rate 2022-11-10 17:57:00 80 /min [facility] Body height 2022-11-10 17:57:00 195.6 cm [facility] Body weight 2022-11-10 17:57:00 156.219 kg [facility] BMI 2022-11-10 17:57:00 40.84 kg/m2 [facility] Oxygen saturation in Arterial blood by Pulse oximetry 2022-11-10 17:57:00 96 /min [facility] Systolic blood pressure 2022-05-21 13:45:00 129 mm[Hg] [facility] Diastolic blood pressure 2022-05-21 13:45:00 83 mm[Hg] [facility] Heart rate 2022-05-21 13:45:00 63 /min [facility] Body temperature 2022-05-21 13:45:00 37.17 [facility] Body height 2022-05-21 13:45:00 195.6 cm [facility] Body weight 2022-05-21 13:45:00 161.027 kg [facility] BMI 2022-05-21 13:45:00 42.10 kg/m2 [facility] Oxygen saturation in Arterial blood by Pulse oximetry 2022-05-21 13:45:00 98 /min [facility] Systolic blood pressure 2021-11-27 14:44:00 133 mm[Hg] [facility] Diastolic blood pressure 2021-11-27 14:44:00 77 mm[Hg] [facility] Heart rate 2021-11-27 14:44:00 80 /min [facility] Body height 2021-11-27 14:44:00 195.6 cm [facility] Body weight 2021-11-27 14:44:00 151.048 kg [facility] BMI 2021-11-27 14:44:00 39.49 kg/m2 [facility] Oxygen saturation in Arterial blood by Pulse oximetry 2021-11-27 14:44:00 98 /min [facility] Procedures Procedure Date / Time Performed Performing Clinician Source XR CHEST 2 VW 2023-01-27 18:00:05 Cece Iqbal [facility] EXTERNAL PROVIDER RECORDS 2022-12-02 05:01:00 Doctor Unassigned, [place] AUTHORIZATION FOR RELEASE OF PHI 2022-11-27 05:01:00 Doctor Unassigned, [place] EXTERNAL PROVIDER RECORDS 2022-11-24 05:01:00 Doctor Unassigned, [place] REFERRAL- REQUEST/RESPONSE 2022-11-12 05:01:00 Doctor Unassigned, [place] Encounters Start Date/Time End Date/Time Encounter Type Admission Type Attending [facility] Care Facility Care Department Encounter ID Source 2023-07-02 10:45:00 2023-07-02 10:45:00 Office Visit ParrDany [facility] 1.2.840.114 350.1.13.10 4.2.7.2.[id number] [facility] 2023-07-02 10:45:00 2023-07-02 10:43:58 Outpatient R DANY PARR CRAIG [facility] [id number] [facility] 2023-01-27 12:24:29 2023-01-27 23:59:00 Outpatient R IQBALSURYA CONTIVANDANA [facility] [id number] [facility] 2023-01-27 12:24:29 2023-01-27 23:59:00 Hospital Encounter uSrya Iqbaljordanwendi [facility] 1.2.840.114 350.1.13.10 4.2.7.2.[id number] [facility] 2023-01-27 12:00:00 2023-01-27 12:30:17 Urgent Care Surya Iqbaljordanwendi Unknown, Attending [facility] 1.2.840.114 350.1.13.10 4.2.7.2.[id number] [facility] 2023-01-26 15:45:00 2023-01-26 16:00:00 Office Visit Hina Singh [facility] 1.2.840.114 350.1.13.10 4.2.7.2.[id number] [facility] 2023-01-26 15:45:00 2023-01-26 15:45:00 Outpatient R HINA SINGH [facility] [id number] [facility] 2023-01-26 00:00:00 2023-01-26 00:00:00 Letter (Out) [facility] 1.2.840.114 350.1.13.10 4.2.7.2.[id number] [facility] 2023-01-26 00:00:00 2023-01-26 00:00:00 Letter (Out) [facility] 1.2.840.114 350.1.13.10 4.2.7.2.[id number] [facility] 2023-01-26 00:00:00 2023-01-26 00:00:00 Letter (Out) Hina Snigh [facility] 1.2.840.114 350.1.13.10 4.2.7.2.[id number] [facility] 2023-01-26 00:00:00 2023-01-26 00:00:00 Letter (Out) [facility] 1.2.840.114 350.1.13.10 4.2.7.2.[id number] [facility] 2023-01-23 09:30:00 2023-01-23 09:30:00 Outpatient R [facility] [id number] [facility] 2023-01-17 00:00:00 2023-01-17 00:00:00 Refill Eugenie See [facility] 1.2.840.114 350.1.13.10 4.2.7.2.[id number] [facility] 2023-01-16 16:00:00 2023-01-16 16:45:00 Ancillary Visit Joellen Vargas Dany Villafana [facility] 1.840.114 350.1.13.10 4.2.7.2.[id number] [facility] 2023-01-16 16:00:00 2023-01-16 16:00:00 Outpatient R DANY PARR CRAIG [facility] [id number] [facility] 2023-01-15 09:40:00 2023-01-15 10:01:48 Outpatient R JOSIE GORMAN [facility] [id number] [facility] 2023-01-15 09:40:00 2023-01-15 10:01:48 Urgent Care Josie Gorman Unknown, Attending [facility] 1.840.114 350.1.13.10 4.2.7.2.[id number] [facility] 2023-01-15 00:00:00 2023-01-15 00:00:00 [facility] 1.84.114 350.1.13.10 4.2.7.2.[id number] [facility] 2023-01-15 00:00:00 2023-01-15 00:00:00 [facility] 1.840.114 350.1.13.10 4.2.7.2.[id number] [facility] 2023-01-09 11:00:00 2023-01-09 11:51:15 Ancillary Visit Gabrielle Vuong Craig L [facility] 1.840.114 350.1.13.10 4.2.7.2.[id number] [facility] 2023-01-07 11:00:00 2023-01-07 13:08:45 Ancillary Visit Gabrielle Vuong Craig L [facility] 1.2.840.114 350.1.13.10 4.2.7.2.[id number] [facility] 2023-01-02 11:00:00 2023-01-02 11:45:00 Ancillary Visit Sam JoellenDany Cowan [facility] 1.2.840.114 350.1.13.10 4.2.7.2.[id number] [facility] 2022-12-31 10:15:00 2022-12-31 11:00:00 Ancillary Visit Eleno Vargas Craig L [facility] 1.2.840.114 350.1.13.10 4.2.7.2.[id number] [facility] 2022-12-26 00:00:00 2022-12-26 00:00:00 Telephone Hina Singh [facility] 1.2.840.114 350.1.13.10 4.2.7.2.[id number] [facility] 2022-12-25 10:00:00 2022-12-25 10:15:00 Office Visit Hina Singh Craig [facility] 1.2.840.114 350.1.13.10 4.2.7.2.[id number] [facility] 2022-12-25 10:00:00 2022-12-25 10:00:00 Outpatient R DANY PARR [facility] [id number] [facility] 2022-12-24 09:30:00 2022-12-24 10:15:00 Ancillary Visit Eleno Vargas Craig [facility] 1.2840.114 350.1.13.10 4.2.7.2.[id number] [facility] 2022-12-24 00:00:00 2022-12-24 00:00:00 Telephone Dany Parr [facility] 1.84.114 350.1.13.10 4.2.7.2.[id number] [facility] 2022-12-22 09:30:00 2022-12-22 10:15:00 [facility] 1.84.114 350.1.13.10 4.2.7.2.[id number] [facility] 2022-12-15 09:30:00 2022-12-15 10:13:56 Outpatient R DANY PARR DANY [facility] [id number] [facility] 2022-12-15 09:30:00 2022-12-15 10:13:56 Ancillary [facility] 1.2840.114 350.1.13.10 4.2.7.2.686 [id number] [facility] 2022-12-02 00:00:00 2022-12-02 00:00:00 Orders Only Doctor Unassigned, [place] [facility] 1.284.114 350.1.13.10 4.2.7.2.[id number] [facility] 2022-12-01 00:00:00 2022-12-01 00:00:00 Telephone Dany Parr [facility] 1.20.114 350.1.13.10 4.2.7.2.[id number] [facility] 2022-11-27 00:00:00 2022-11-27 00:00:00 Orders Only Doctor Unassigned, [place] [facility] 1.2840.114 350.1.13.10 4.2.7.2.[id number] [facility] 2022-11-24 14:45:00 2022-11-24 14:57:15 Outpatient R DANY PARR [facility] [id number] [facility] 2022-11-24 14:45:00 2022-11-24 14:57:15 Office Visit Dany Parr [facility] 1.0.114 350.1.13.10 4.2.7.2.[id number] [facility] 2022-11-24 00:00:00 2022-11-24 00:00:00 Orders Only Doctor Unassigned, [place] [facility] 1.20.114 350.1.13.10 4.2.7.2.[id number] [facility] 2022-11-24 00:00:00 2022-11-24 00:00:00 Telephone Dany Parr [facility] 1..114 350.1.13.10 4.2.7.2.[id number] [facility] 2022-11-20 00:00:00 2022-11-20 00:00:00 Telephone [facility] 1.2.114 350.1.13.10 4.2.7.2.[id number] [facility] 2022-11-20 00:00:00 2022-11-20 00:00:00 [facility]phone [facility] 1.2.840.114 350.1.13.10 4.2.7.2.[id number] [facility] 2022-11-20 00:00:00 2022-11-20 00:00:00 Patient Secure Msg Doctor Unassigned, [place] [facility] 1.2.840.114 350.1.13.10 4.2.7.2.[id number] [facility] 2022-11-19 00:00:00 2022-11-19 00:00:00 Telephone [facility] Par[facility] 1.2840.114 350.1.13.10 4.2.7.2.[id number] [facility] 2022-11-13 00:00:00 2022-11-13 00:00:00 Telephone [facility]any Parr [facility] 1.2.840.114 350.1.13.10 4.2.7.2.[id number] [facility] 2022-11-12 14:45:00 2022-11-12 14:45:00 Office Visit [facility] Par[facility] 1.2840.114 350.1.13.10 4.2.7.2.[id number] [facility] 2022-11-12 14:45:00 2022-11-12 14:18:52 Outpatient R DANY PARR [facility] [id number] [facility] 2022-11-12 00:00:00 2022-11-12 00:00:00 Orders Only Doctor Unassigned, [place] [facility] 1.2.840.114 350.1.13.10 4.2.7.2.[id number] [facility] 2022-11-10 13:00:00 2022-11-10 13:37:39 Outpatient R SEAN SIERRA [facility] [id number] [facility] 2022-11-10 13:00:00 2022-11-10 13:37:39 Office Visit Tonia [facility] SU[facility] 1.2.840.114 350.1.13.10 4.2.7.2.[id number] [facility] 2022-11-10 00:00:00 2022-11-10 00:00:00 Letter (Out) [facility] 1.2.840.114 350.1.13.10 4.2.7.2.[id number] [facility] 2022-07-25 00:00:00 2022-07-25 00:00:00 Refill Mayi, Eugenie A [facility] 1.2.840.114 350.1.13.10 4.2.7.2.[id number] [facility] 2022-07-19 00:00:00 2022-07-19 00:00:00 Refill Mayi, Eugenie A [facility] 1.2.840.114 350.1.13.10 4.2.7.2.[id number] [facility] 2022-05-22 00:00:00 2022-05-22 00:00:00 Refill Mayi, Eugenie A [facility] 1.2840.114 350.1.13.10 4.2.7.2.[id number] [facility] 2022-05-21 08:15:00 2022-05-21 08:27:48 Top Screw Visit Lab, Ang - Db Eugenie See [facility] 1.2840.114 350.1.13.10 4.2.7.2.[id number] [facility] 2022-05-21 07:30:00 2022-05-21 08:10:47 Outpatient R MAYIVAISHALI VANESSALIE [facility] [id number] [facility] 2022-05-21 07:30:00 2022-05-21 08:10:47 Office Visit uEgenie See [facility] 1.2840.114 350.1.13.10 4.2.7.2.[id number] [facility] 2022-05-09 00:00:00 2022-05-09 00:00:00 Refill Eugenie See [facility] 1.2840.114 350.1.13.10 4.2.7.2.[id number] [facility] 2021-12-03 00:00:00 2021-12-03 00:00:00 Telephone Eugenie See [facility] 1.2840.114 350.1.13.10 4.2.7.2.[id number] [facility] 2021-11-29 00:00:00 2021-11-29 00:00:00 Telephone Eugenie See [facility] 1.2.840.114 350.1.13.10 4.2.7.2.[id number] [facility] 2021-11-27 11:30:00 2021-11-27 11:45:00 Top Screw Visit Pob, Adc Lab Main Eugenie See [facility] 1..840.114 350.1.13.10 4.2.7.2.[id number] [facility] 2021-11-27 10:00:00 2021-11-27 11:44:32 Outpatient R EUGENIE SEE [facility] [id number] [facility] 2021-11-27 10:00:00 2021-11-27 10:30:00 Office Visit Eugenie See [facility] 1.2.840.114 350.1.13.10 4.2.7.2.[id number] [facility] 2021-11-27 10:00:00 2021-11-27 10:00:00 Outpatient R EUGENIE SEE [facility] [id number] [facility] 2021-11-27 00:00:00 2021-11-27 00:00:00 Orders Only Doctor Unassigned, [place] [facility] 1..840.114 350.1.13.10 4.2.7.2.[id number] [facility] 2021-11-21 11:30:00 2021-11-21 11:30:00 Outpatient MARY HAMILTON [id number] Samia Liang 2021-11-20 16:00:00 2021-11-20 16:00:00 Outpatient CARLOZ LANDA [id number] Samia Liang Notes Date/Time Note Provider Source 2022-12-29 10:38:09 Formatting of this n ote might be different from the original. Flor from PT faxed noted 12/26/22 Linda Oleary MA 12/29/2022 10:38 AM Linda Oleary MA [facility] 2022-12-26 15:37:26 Formatting of this n ote might be different from the original. Pt following up on request. Shweta Candelaria [facility] 2022-12-26 08:38:46 Formatting of this n ote might be different from the original. Pt called wanting to verify if we received medical record request from [employer]. He states that it was faxed over on 12/22. If not received he is asking for clinic to get in touch with them. Please advise. 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 Patient is needing an extension on FMLA, pt dropped off paperwork & placed in provider basket. Pt has appt tomorrow with Niranjan to fill out paperwork. If paperwork can be filled out and faxed back without an appt, pt is greatly appreciated. Linda Morris [facility] 2022-12-12 15:47:55 Formatting of this n ote might be different from the original. Informed patient the forms are ready to be picked up and I'll fax it over to [employer] for him as well. Didi Sánchez MA 12/12/2022 3:48 PM Didi Sánchez [facility] 2022-12-01 11:11:46 Formatting of this n ote might be different from the original. Pt came into clinic to drop off forms to be signed for short term disability and for leave of absents for work. Cortney Janes Nava [facility] 2022-11-25 08:22:00 Formatting of this n ote might be different from the original. PT referral updated Linda Oleary MA 11/25/2022 8:22 AM T [facility] 2022-11-24 16:52:12 Formatting of this n ote might be different from the original. Report is done schedule a follow-up appointment NAME: Hattie Paz EXAM DATE: 18-Nov-2022 1:45 PM : 1990 PHYSICIAN: Dany Parr MD EXAM: OPEN MRI SHOULDER W/O LEFT ACC#: [id number] SEX/AGE: M/32 OPEN MRI SHOULDER W/O LEFT page 1 of 2 Exam: MRI of the left shoulder without contrast Clinical information: Left shoulder pain for one week Technique: Multiplanar, multisequence imaging of the left shoulder was performed without contrast. Findings: There is a type I acromion in normal position. The acromioclavicular joint shows mild joint space narrowing, fibrous capsular overgrowth and osteophyte formation. There is no bone marrow edema surrounding the acromioclavicular joint. There is a small amount of fluid in the subacromial/subdeltoid bursa and a small shoulder joint effusion. There is a 2.3 cm length fluid-filled partial thickness tear along the articular surface of the distal supraspinatus tendon estimated at 25% in thickness. The infraspinatus, teres and subscapularis tendons are intact with no partial or full thickness tears. The rotator cuff muscles are normal in caliber with no atrophy, fatty infiltration or intramuscular edema. The biceps tendon is located in the bicipital groove without subluxation. The biceps labral complex is intact. The superior, anterior and posterior labrum demonstrate normal morphology with normal signal intensity. No labral tears are visualized. The superior, middle and inferior glenohumeral ligaments are intact. The glenohumeral joint is well maintained. There are no suprascapular or spinoglenoid notch cysts. Impression: 1. A 2.3 cm length fluid-filled partial thickness tear along the articular surface of the distal supraspinatus tendon estimated at 25% in thickness. NAME: Hattie Paz EXAM DATE: 18-Nov-2022 1:45 PM : 1990 PHYSICIAN: Dany Parr MD EXAM: OPEN MRI SHOULDER W/O LEFT ACC#: [id number] SEX/AGE: M/32 OPEN MRI SHOULDER W/O LEFT page 2 of 2 2. A small amount of fluid in the subacromial/subdeltoid bursa. 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 Pt called and states that for the referral it was supposed to be his left arm, and not right. Please advise. Shweta Candelaria [facility] 2022-11-20 10:58:35 Formatting of this n ote might be different from the original. Sent message via [employer] informing him to call and schedule an appt for Thursday since provider is booked up until then. Didi Sánchez MA 11/20/2022 10:59 AM [facility] 2022-11-20 10:47:09 Formatting of this n ote might be different from the original. Pt calling to say he only has a cd but know repots to bring to his next appt. They next fiordaliza is 12/11 and pt said he cant wait that long. He would like to be put in for today or tomorrow. Can some reach ou to pt to see what can be done Rubi Waldron [facility] 2022-11-20 10:30:09 Formatting of this n ote might be different from the original. Called patient but no answer so LVMTCB to schedule an appointment to discuss his MRI results and bring in his report and CD.Didi Sánchez MA 11/20/2022 10:30 AM [facility] 2022-11-20 09:52:44 Formatting of this n ote might be different from the original. Pt calling wanting to go over MRI results, also says work is calling him so he says this is urgent so he know is he can return to full duty or with restrictions Mary Mondragon [facility] 2022-11-19 13:17:34 Formatting of this n ote might be different from the original. Pt called and is wanting to verify if we received MRI from [facility]. Pt states that he had the MRI around 2 PM yesterday. Please give pt a call with an update on status. Call back number: [phone] Pt is also requesting Tylenol 3 with codeine. He states that he Ibuprofen isn't working, and he was prescribed Tylenol 3 before and it had helped ease the pain. Shweta Candelaria [facility] 2022-11-13 11:49:43 Formatting of this n ote might be different from the original. MRI as ordered at [facility] once auth is obtained pt will be contacted to schedule Linda Oleary MA 11/13/2022 11:50 AM Linda Oleary MA [facility] 2022-11-13 08:34:31 Formatting of this n ote might be different from the original. Patient is calling in requesting order for MRI per patient he discussed at yesterday's OV. Loki Caceres [facility]
[2023-12-04] MEDS ORDERED: DIPHENHYDRAMINE 50 MG/ML VIAL ONE (02:04)
[2023-12-04] MEDS ORDERED: KETOROLAC 30 MG/ML INJ ONE (02:04)
[2023-12-04] MEDS ORDERED: NA CHLORIDE 0.9% 1,000 ML ONE (02:05)
--- NOTE | 2023-12-04 02:35 | EDPHYS ---
Physician Documentation [facility] Name: Pipe Paz Age: 33 yrs Sex: Male : 1990 Arrival Date: 12/04/2023 Time: 01:21 Bed 20 Private MD: ED Physician Dharmesh Tabares HPI: 12/03 01:55 This 33 yrs old Male presents to ER via Ambulatory with complaints of Arm ec2 Injury, Numbness Of Arm. 01:55 Patient with history of rotator cuff injury in her left upper extremity, complaining of ec2 shoulder pain as well as head pain, neck pain going into the trapezius. No falls injuries or trauma.. Historical: - Allergies: 01:53 Erythromycin; cp4 - Home Meds: 01:53 Topamax Oral [Active]; cp4 - PMHx: 01:53 epilepsy; cp4 - Immunization history:: Adult Immunizations up to date. - Infectious Disease History:: Denies. - Social history:: Smoking status: Patient denies any tobacco usage or history of. ROS: 01:55 Constitutional: as per hpi ec2 Exam: 01:55 Constitutional: GEN: NAD Head: atraumatic Eyes: EOMI Ears: External ears are ec2 normal. CV: regular rate LUNGS: no respiratory distress ABD: non-distended SKIN: no evidence of rashes MSK: no evidence of trauma NEURO: moves all extremities equally, cranial nerves II through XII intact, strength intact upper extremities. Vital Signs: 01:51 BP 127 / 81; Pulse 68; Resp 18; Temp 97.9; Pulse Ox 98% ; Pain 7/10; cp4 02:44 BP 124 / 79; Pulse 64; Resp 18; Temp 97.9; Pulse Ox 99% ; cp4 01:51 Pain Scale: Adult cp4 MDM: 01:41 Patient medically screened. ec2 01:55 Data reviewed: vital signs. ED course: Patient arrives today for headache, neck pain, ec2 shoulder pain. Examination remarkable for neuro intact individuals otherwise in no acute distress with a reassuring examination. Will give the patient medications help with his headache. Suspect headache syndrome, possible musculoskeletal sprain, possible rotator cuff injury.. 02:34 ED course: On reassessment patient with complete resolution in his headache. Will ec2 discharge home. Return precautions given.. 12/03 01:54 Order name: IV; Complete Time: 02:10 ec2 Administered Medications: 02:10 Drug: NS 0.9% IV 1000 ml IV at 1 bolus Per protocol; 1000 mL bolus Route: IV; Rate: 1 cp4 bolus; Site: right antecubital; 02:45 Follow up: Response: No adverse reaction; IV Status: Completed infusion cp4 02:10 Drug: Ketorolac IVP 15 mg IVP once Route: IVP; Site: right antecubital; cp4 02:45 Follow up: Response: No adverse reaction cp4 02:10 Drug: Droperidol IVP 1.25 mg IVP once Route: IVP; Site: right antecubital; cp4 02:45 Follow up: Response: No adverse reaction cp4 02:10 Drug: diphenhydrAMINE IVP 12.5 mg IVP once Route: IVP; Site: right antecubital; cp4 02:45 Follow up: Response: No adverse reaction cp4 Disposition Summary: 12/04/23 02:34 Discharge Ordered Notes: Location: Home ec2 Condition: Stable ec2 Diagnosis - Headache ec2 - Sprain of right rotator cuff capsule ec2 Followup: ec2 - With: Private Physician - When: - Reason: Re-evaluation by your physician Discharge Instructions: - Discharge Summary Sheet ec2 - General Headache Without Cause ec2 Forms: - Work release form ec2 - Family Work Release ec2 - Medication Reconciliation Form ec2 - Antibiotic Education ec2 - Prescription Opioid Use ec2 - Patient Portal Instructions ec2 - Leadership Thank You Letter ec2 Prescriptions: - Compazine 10 mg Oral Tablet - take 1 tablet ORAL route every 8 hours As needed; 20 tablet; Refills: 0, ec2 Product Selection Permitted Signatures: Dharmesh Tabares MD MD ec2 Marilou Reed cp4
--- NOTE | 2023-12-04 02:35 | ER ---
Nurse's Notes [facility] Name: Pipe Paz Age: 33 yrs Sex: Male : 1990 Arrival Date: 12/04/2023 Time: 01:21 Bed 20 Private MD: Diagnosis: Headache;Sprain of right rotator cuff capsule Presentation: 12/03 01:51 Chief complaint: Patient states: left arm pain and headache. Coronavirus screen: Client cp4 denies travel out of the [place] in the last 14 days. At this time, the client does not indicate any symptoms associated with coronavirus-19. Ebola Screen: Patient negative for fever greater than or equal to 101.5 degrees Fahrenheit, and additional compatible Ebola Virus Disease symptoms Patient denies exposure to infectious person. Patient denies travel to an Ebola-affected area in the 21 days before illness onset. No symptoms or risks identified at this time. Initial Sepsis Screen: Does the patient meet any 2 criteria? No. Patient's initial sepsis screen is negative. Does the patient have a suspected source of infection? No. Patient's initial sepsis screen is negative. Risk Assessment: Do you want to hurt yourself or someone else? Patient reports no desire to harm self or others. Onset of symptoms was December 03, 2023. 01:51 Method Of Arrival: Ambulatory 4 01:51 Acuity: ELIAS 4 cp4 Triage Assessment: 01:53 General: Appears in no apparent distress. comfortable, Behavior is calm, cooperative, cp4 appropriate for age. Pain: Complains of pain in left arm Pain radiates to back. EENT: No deficits noted. Neuro: Level of Consciousness is awake, alert, obeys commands. Cardiovascular: No deficits noted. Respiratory: No deficits noted. GI: No deficits noted. : No deficits noted. Derm: No deficits noted. Musculoskeletal: Reports pain in left arm. Injury Description: previous injury 1 year ago. Historical: - Allergies: 01:53 Erythromycin; cp4 - Home Meds: 01:53 Topamax Oral [Active]; cp4 - PMHx: 01:53 epilepsy; cp4 - Immunization history:: Adult Immunizations up to date. - Infectious Disease History:: Denies. - Social history:: Smoking status: Patient denies any tobacco usage or history of. Screenin:56 [facility] ED Fall Risk Assessment (Adult) History of falling in the last 3 months, cp4 including since admission No falls in past 3 months (0 pts) Confusion or Disorientation No (0 pts) Intoxicated or Sedated No (0 pts) Impaired Gait No (0 pts) Mobility Assist Device Used No (0 pt) Altered Elimination No (0 pt) Score/Fall Risk Level 0 - 2 = Low Risk Oriented to surroundings, Maintained a safe environment, Assessed \T\ reinforced patient's understanding of fall precautions, Hourly rounding (assess needs \T\ fall precautionary measures) done. Abuse screen: Denies threats or abuse. Nutritional screening: No deficits noted. Tuberculosis screening: No symptoms or risk factors identified. Assessment: 01:56 Reassessment: No changes from previously documented assessment. cp4 Vital Signs: 01:51 BP 127 / 81; Pulse 68; Resp 18; Temp 97.9; Pulse Ox 98% ; Pain 7/10; cp4 02:44 BP 124 / 79; Pulse 64; Resp 18; Temp 97.9; Pulse Ox 99% ; cp4 01:51 Pain Scale: Adult cp4 ED Course: 01:37 Patient arrived in ED. jb4 01:41 Dharmesh Tabares MD is Attending Physician. ec2 01:51 Marilou Reed is Primary Nurse. cp4 01:53 Triage completed. cp4 01:53 Arm band placed on right wrist. Patient placed in waiting room. cp4 01:56 Bed in low position. Call light in reach. Side rails up X 1. cp4 02:11 No provider procedures requiring assistance completed. Inserted saline lock: 20 gauge cp4 in right antecubital area, using aseptic technique. Flushed with 10 mL NS. 02:45 Provided Education on: headache. cp4 02:45 intact, bleeding controlled, No redness/swelling at site. Pressure dressing applied. cp4 Administered Medications: 02:10 Drug: NS 0.9% IV 1000 ml IV at 1 bolus Per protocol; 1000 mL bolus Route: IV; Rate: 1 cp4 bolus; Site: right antecubital; 02:45 Follow up: Response: No adverse reaction; IV Status: Completed infusion cp4 02:10 Drug: Ketorolac IVP 15 mg IVP once Route: IVP; Site: right antecubital; cp4 02:45 Follow up: Response: No adverse reaction cp4 02:10 Drug: Droperidol IVP 1.25 mg IVP once Route: IVP; Site: right antecubital; cp4 02:45 Follow up: Response: No adverse reaction cp4 02:10 Drug: diphenhydrAMINE IVP 12.5 mg IVP once Route: IVP; Site: right antecubital; cp4 02:45 Follow up: Response: No adverse reaction cp4 Medication: 01:56 VIS not applicable for this client. cp4 Outcome: 02:34 Discharge ordered by . ec2 02:45 Discharged to home ambulatory, cp4 02:45 Condition: stable 02:45 Discharge instructions given to patient, Instructed on discharge instructions, follow up and referral plans. medication usage, Demonstrated understanding of instructions, follow-up care, medications, Prescriptions given X 1, 02:46 Patient left the ED. cp4 Signatures: Johnson Slade RN RN jb4 Dharmesh Tabares MD MD ec2 Marilou Reed cp4
[2023-12-04 03:28] VITALS: TEMP 97.9
[2023-12-04 03:29] VITALS: BP 124/79; O2SAT 99
== END 2023-12-04 02:46 | disposition home or self-care (01) ==
LOC: ER 01:21
DX: S43.421A Sprain of right rotator cuff capsule, initial encounter (principal); R51.9 Headache, unspecified
CPT/HCPCS: 96361; 96375; 96374; 99284; J1200; J7030